=== PATIENT | female | born 1975 | race Caucasian/White ===

== ENCOUNTER 2022-04-30 08:47 | Day surgery (SDC) | payer OTHER ==
[~2022-04-30] VITALS: Ht 157.5 cm; Wt 83.9 kg
[2022-04-30] MEDS ORDERED: fentaNYL citrate 0.05 MG/ML VIAL ONE (09:37)
[2022-04-30] MEDS ORDERED: diphenhydrAMINE 50 MG/ML VIAL ONE (09:37)
[2022-04-30] MEDS ORDERED: LIDOCAINE 2% 100 MG/5 ML UJET TP ONE (09:38)
[2022-04-30] MEDS ORDERED: MIDAZOLAM 5 MG/5 ML VIAL ONE (09:38)
[2022-04-30] MEDS ORDERED: fentaNYL citrate 0.05 MG/ML VIAL IVP ONE (10:35)
[2022-04-30] MEDS ORDERED: MIDAZOLAM 2 MG/2 ML VIAL IVP ONE (10:35)
== END 2022-04-30 11:35 | disposition home or self-care (01) ==
LOC: MOR 08:47 → MMU 08:48 → MOR 11:35
PROVIDERS: ATTEND Internal Medicine Gastroenterology
DX: Z12.11 Encounter for screening for malignant neoplasm of colon (principal); K63.5 Polyp of colon; F32.A Depression, unspecified; E66.09 Other obesity due to excess calories; Z80.0 Family history of malignant neoplasm of digestive organs; Z90.710 Acquired absence of both cervix and uterus; Z68.33 Body mass index [BMI] 33.0-33.9, adult; Z79.899 Other long term (current) drug therapy; Z20.822 Contact with and (suspected) exposure to COVID-19
CPT/HCPCS: 45380; 45385; 87426; 88305; J2250; J3010; J1200